=== PATIENT | male | born 1980 | race Caucasian/White ===

== ENCOUNTER 2017-05-16 22:40 | Emergency (ER) | payer OTHER ==
[2017-05-16 22:45] VITALS: BP 115/71
== END 2017-05-16 23:41 | disposition home or self-care (01) ==
LOC: ED 22:40
PROC: 3E023NZ Introduction of Analgesics, Hypnotics, Sedatives into Muscle, Percutaneous Approach (ICD-10-PCS; principal; 2017-05-16)
DX: R10.13 Epigastric pain (principal); R11.2 Nausea with vomiting, unspecified; R19.7 Diarrhea, unspecified
CPT/HCPCS: J1885; J7030; Q0162

== ENCOUNTER 2017-06-30 12:25 | Emergency (ER) | payer OTHER ==
[~2017-06-30] VITALS: Ht 175.3 cm; Wt 77.1 kg
[2017-06-30 16:15] LABS: BASOPHIL % 0.4 % (0-2)
[2017-06-30 16:20] LABS: CALCIUM 8.2 mg/dL (8.5-10.1); CARBON DIOXIDE 30.9 mmol/L (21-32); CHLORIDE SERUM 97 mmol/L (98-107); CREATININE SERUM 0.9 mg/dL (0.7-1.3); GFR1 > 60 mL/min; GLUCOSE SERUM 91 mg/dL (74-106); POTASSIUM SERUM 3.1 mmol/L (3.5-5.1); SODIUM SERUM 134 mmol/L (136-145)
[2017-06-30 16:24] LABS: ALBUMIN 2.6 g/dL (3.4-5.0); ALKALINE PHOSPHATASE 205 U/L (46-116); ALT/SGPT 48 U/L (16-63); AST/SGOT 172 U/L (15-37); BILIRUBIN TOTAL 2.8 mg/dL (0.20-1.00); LIPASE 116 IU/L (73-393); TOTAL PROTEIN, SERUM 8.5 g/dL (6.4-8.2)
[2017-06-30 16:41] LABS: UA SPECIFIC GRAVITY 1.015 (1.005-1.035); microscopic required? YES; urine erythrocyte NEGATIVE (NEGATIVE)
[2017-06-30 16:45] LABS: PLATELET COUNT 81 x10^3mcL (130-400)
[2017-06-30 18:30] VITALS: BP 117/78
== END 2017-06-30 18:30 | disposition home or self-care (01) ==
LOC: ED 12:25
PROVIDERS: Emergency Medicine
DX: S22.32XA Fracture of one rib, left side, initial encounter for closed fracture (principal); G89.29 Other chronic pain; E87.6 Hypokalemia; K76.9 Liver disease, unspecified; X58.XXXA Exposure to other specified factors, initial encounter; Y93.89 Activity, other specified; Y99.8 Other external cause status; Y92.89 Other specified places as the place of occurrence of the external cause
CPT/HCPCS: 83880; J2405; J7030

== ENCOUNTER 2018-02-12 22:24 | Inpatient (IN) | payer OTHER ==
[~2018-02-12] VITALS: Ht 175.3 cm; Wt 74.8 kg
[2018-02-12 22:37] VITALS: Ht 175.3 cm; Wt 74.8 kg
[2018-02-12 23:22] LABS: BASOPHIL % 0.3 % (0-2); PLATELET COUNT 256 x10^3mcL (130-400)
[2018-02-12 23:24] LABS: CALCIUM 8.5 mg/dL (8.5-10.1); CARBON DIOXIDE 26.9 mmol/L (21-32); CHLORIDE SERUM 99 mmol/L (98-107); CREATININE SERUM 0.9 mg/dL (0.7-1.3); GFR1 > 60 mL/min; GLUCOSE SERUM 130 mg/dL (74-106); POTASSIUM SERUM 3.4 mmol/L (3.5-5.1); RED CELL DISTRIBUTION WIDTH 14.7 % (11.5-14.5); SODIUM SERUM 135 mmol/L (136-145)
[2018-02-12 23:29] LABS: ALKALINE PHOSPHATASE 145 U/L (46-116); ALT/SGPT 34 U/L (16-63); AST/SGOT 28 U/L (15-37); BILIRUBIN TOTAL 0.9 mg/dL (0.20-1.00); TOTAL PROTEIN, SERUM 7.6 g/dL (6.4-8.2)
[2018-02-12 23:30] LABS: ALBUMIN 2.9 g/dL (3.4-5.0)
[2018-02-13] VITALS (7 sets, daily range): BP systolic 91–109; BP diastolic 48–66
[2018-02-13] MEDS ORDERED: PROVENTIL0.09 MG/A1 (00:54)
[2018-02-13 00:55] LABS: MAGNESIUM 1.7 mg/dL (1.8-2.4); PHOSPHOROUS 3.4 mg/dL (2.5-4.9)
[2018-02-13] MEDS ORDERED: CYMBALTA30 M1 PO (00:55)
[2018-02-13] MEDS ORDERED: NOR10T PO (00:55)
[2018-02-13 01:05] LABS: FREE THYROXINE INDEX 1.9 ug/dL (1.4-4.5); T4(THYROXINE) 5.2 ug/dL (4.7-13.3)
[2018-02-13 01:48] LABS: microscopic required? NO
[2018-02-13 01:57] LABS: UA SPECIFIC GRAVITY <=1.005 (1.005-1.035); urine erythrocyte NEGATIVE (NEGATIVE)
[2018-02-13 02:06] LABS: T3 TOTAL 0.91 ng/mL
[2018-02-13 02:17] LABS: AMPHETAMINE QUAL UR NONE DETECTED (See below)
[2018-02-13 06:30] LABS: BASOPHIL % 0.3 % (0-2); PLATELET COUNT 208 x10^3mcL (130-400)
[2018-02-13 06:41] LABS: RED CELL DISTRIBUTION WIDTH 14.6 % (11.5-14.5)
[2018-02-13 09:39] LABS: CALCIUM 7.5 mg/dL (8.5-10.1); CARBON DIOXIDE 26.7 mmol/L (21-32); CHLORIDE SERUM 105 mmol/L (98-107); CREATININE SERUM 0.8 mg/dL (0.7-1.3); GFR1 > 60 mL/min; GLUCOSE SERUM 87 mg/dL (74-106); MAGNESIUM 1.9 mg/dL (1.8-2.4); PHOSPHOROUS 4.3 mg/dL (2.5-4.9); POTASSIUM SERUM 3.5 mmol/L (3.5-5.1); SODIUM SERUM 140 mmol/L (136-145)
[2018-02-14] VITALS (7 sets, daily range): BP systolic 98–105; BP diastolic 51–61
[2018-02-14 06:15] LABS: BASOPHIL % 0.2 % (0-2); PLATELET COUNT 225 x10^3mcL (130-400); RED CELL DISTRIBUTION WIDTH 14.3 % (11.5-14.5)
[2018-02-14 06:22] LABS: CALCIUM 8.4 mg/dL (8.5-10.1); CARBON DIOXIDE 26.6 mmol/L (21-32); CHLORIDE SERUM 105 mmol/L (98-107); CREATININE SERUM 0.7 mg/dL (0.7-1.3); GFR1 > 60 mL/min; GLUCOSE SERUM 99 mg/dL (74-106); MAGNESIUM 1.9 mg/dL (1.8-2.4); PHOSPHOROUS 3.5 mg/dL (2.5-4.9); POTASSIUM SERUM 4.3 mmol/L (3.5-5.1); SODIUM SERUM 139 mmol/L (136-145)
[2018-02-15 06:26] VITALS: BP 118/73
[2018-02-15 07:04] LABS: PLATELET COUNT 255 x10^3mcL (130-400); RED CELL DISTRIBUTION WIDTH 14.2 % (11.5-14.5)
[2018-02-15 07:17] LABS: CALCIUM 8.5 mg/dL (8.5-10.1); CARBON DIOXIDE 26.7 mmol/L (21-32); CHLORIDE SERUM 102 mmol/L (98-107); CREATININE SERUM 0.6 mg/dL (0.7-1.3); GFR1 > 60 mL/min; GLUCOSE SERUM 89 mg/dL (74-106); MAGNESIUM 1.7 mg/dL (1.8-2.4); PHOSPHOROUS 3.6 mg/dL (2.5-4.9); POTASSIUM SERUM 3.5 mmol/L (3.5-5.1); SODIUM SERUM 137 mmol/L (136-145)
[2018-02-15 07:41] LABS: BASOPHIL % 0 % (0-2)
[2018-02-15 08:44] VITALS: BP 103/60
[2018-02-15 13:57] VITALS: BP 109/60
[2018-02-15 17:08] VITALS: BP 126/78
[2018-02-15 22:08] VITALS: BP 95/50
[2018-02-16 00:03] VITALS: BP 114/70
[2018-02-16 05:57] VITALS: BP 114/66
[2018-02-16 06:12] LABS: BASOPHIL % 0.1 % (0-2); PLATELET COUNT 285 x10^3mcL (130-400)
[2018-02-16 06:29] LABS: CALCIUM 8.9 mg/dL (8.5-10.1); CHLORIDE SERUM 104 mmol/L (98-107); CREATININE SERUM 0.7 mg/dL (0.7-1.3); GFR1 > 60 mL/min; GLUCOSE SERUM 81 mg/dL (74-106); MAGNESIUM 2.1 mg/dL (1.8-2.4); PHOSPHOROUS 4.1 mg/dL (2.5-4.9); POTASSIUM SERUM 4.1 mmol/L (3.5-5.1); SODIUM SERUM 139 mmol/L (136-145)
[2018-02-16 06:37] LABS: RED CELL DISTRIBUTION WIDTH 14.8 % (11.5-14.5)
[2018-02-16 11:08] VITALS: BP 123/79
[2018-02-16 16:21] VITALS: BP 111/63
[2018-02-16 20:57] VITALS: BP 115/75
[2018-02-17 05:31] VITALS: BP 107/60
[2018-02-17 06:45] LABS: CALCIUM 9.1 mg/dL (8.5-10.1); CARBON DIOXIDE 27.7 mmol/L (21-32); CHLORIDE SERUM 105 mmol/L (98-107); CREATININE SERUM 0.7 mg/dL (0.7-1.3); GFR1 > 60 mL/min; GLUCOSE SERUM 81 mg/dL (74-106); MAGNESIUM 2.1 mg/dL (1.8-2.4); PHOSPHOROUS 4.2 mg/dL (2.5-4.9); POTASSIUM SERUM 4.3 mmol/L (3.5-5.1); SODIUM SERUM 140 mmol/L (136-145)
[2018-02-17 07:04] LABS: BASOPHIL % 0.5 % (0-2); PLATELET COUNT 318 x10^3mcL (130-400); RED CELL DISTRIBUTION WIDTH 14.4 % (11.5-14.5)
[2018-02-17 08:43] VITALS: BP 117/81
[2018-02-17 17:11] VITALS: BP 106/70
[2018-02-17 21:04] VITALS: BP 104/61
[2018-02-18 05:22] VITALS: BP 109/64
[2018-02-18 06:10] LABS: BASOPHIL % 0.4 % (0-2); PLATELET COUNT 338 x10^3mcL (130-400); RED CELL DISTRIBUTION WIDTH 14.2 % (11.5-14.5)
[2018-02-18 06:22] LABS: CALCIUM 9.5 mg/dL (8.5-10.1); CARBON DIOXIDE 28.3 mmol/L (21-32); CHLORIDE SERUM 105 mmol/L (98-107); CREATININE SERUM 0.6 mg/dL (0.7-1.3); GFR1 > 60 mL/min; GLUCOSE SERUM 86 mg/dL (74-106); PHOSPHOROUS 4.1 mg/dL (2.5-4.9); POTASSIUM SERUM 4.4 mmol/L (3.5-5.1); SODIUM SERUM 139 mmol/L (136-145)
[2018-02-18] MEDS ORDERED: AUG500 PO ×2 (06:26→09:07)
[2018-02-18] MEDS ORDERED: LAC PO ×2 (06:27→09:07)
[2018-02-18 08:55] VITALS: BP 124/82
[2018-02-18] MEDS ORDERED: IPRATROPIUM BROM3 M2 HHN (08:57)
[2018-02-18 09:50] VITALS: BP 124/82
== END 2018-02-18 10:28 | disposition home or self-care (01) | DRG 720 ==
LOC: ED 22:24 → MU 02-13 00:28 → DU 02-13 00:28 → MU 02-15 07:40
PROVIDERS: Emergency Medicine; Family Medicine
DX: A41.9 Sepsis, unspecified organism (principal); J69.0 Pneumonitis due to inhalation of food and vomit; J85.0 Gangrene and necrosis of lung; K74.60 Unspecified cirrhosis of liver; E44.0 Moderate protein-calorie malnutrition; K80.20 Calculus of gallbladder without cholecystitis without obstruction; J45.909 Unspecified asthma, uncomplicated; F12.90 Cannabis use, unspecified, uncomplicated; G89.29 Other chronic pain; M54.9 Dorsalgia, unspecified; F32.9 Major depressive disorder, single episode, unspecified; D64.9 Anemia, unspecified; E87.6 Hypokalemia; E83.42 Hypomagnesemia; Z68.24 Body mass index [BMI] 24.0-24.9, adult
CPT/HCPCS: 32405; 82785; 83880; 84439; 86580; 87116; 87206; 94150; C1894; J0295; J0456; J0696; J1885; J2001; J2270; J2405; J2543; J2800; J3475; J3490; J7030; J7040; J7050; J7620; Q0092; Q9967

== ENCOUNTER 2020-03-29 13:44 | Emergency (ER) | payer BC, OTHER ==
[~2020-03-29] VITALS: Ht 175.3 cm; Wt 81.6 kg
[~2020-03-29 13:44] MED LIST: AUG500 PO; CYMBALTA30 M1 PO; IPRATROPIUM BROM3 M2 HHN; LAC PO; NOR10T PO; PROVENTIL0.09 MG/A1
[2020-03-29 16:22] LABS: PLATELET COUNT 277 x10^3mcL (130-400)
[2020-03-29 16:27] LABS: CALCIUM 7.6 mg/dL (8.5-10.1); CARBON DIOXIDE 24.5 mmol/L (21-32); CHLORIDE SERUM 101 mmol/L (98-107); GFR1 > 60 mL/min; GLUCOSE SERUM 104 mg/dL (74-106); POTASSIUM SERUM 3.2 mmol/L (3.5-5.1); SODIUM SERUM 136 mmol/L (136-145)
[2020-03-29 16:29] LABS: ALBUMIN 3.1 g/dL (3.4-5.0); ALKALINE PHOSPHATASE 102 U/L (46-116); ALT/SGPT 30 U/L (16-63); AST/SGOT 38 U/L (15-37); BILIRUBIN TOTAL 0.5 mg/dL (0.20-1.00); TOTAL PROTEIN, SERUM 7.2 g/dL (6.4-8.2)
[2020-03-29 16:44] LABS: RED CELL DISTRIBUTION WIDTH 21.6 % (11.5-14.5)
[2020-03-29 17:25] VITALS: BP 124/74
[2020-03-29 17:53] LABS: BAND NEUTROPHIL 0 % (0-10); BASOPHIL 0 % (0-2); SEGMENTED NEUTROPHILS 76 % (37-75); rbc morphology (normal/abnorm) ABNORMAL (NORMAL)
== END 2020-03-29 17:25 | disposition home or self-care (01) ==
LOC: ED 13:44
PROVIDERS: Emergency Medicine
DX: R06.02 Shortness of breath (principal); D64.9 Anemia, unspecified; E87.6 Hypokalemia; J45.909 Unspecified asthma, uncomplicated; G89.29 Other chronic pain; M54.9 Dorsalgia, unspecified
CPT/HCPCS: 83880; Q0092

== ENCOUNTER 2020-04-12 17:57 | Inpatient (IN) | payer BC, OTHER ==
[~2020-04-12] VITALS: Ht 175.3 cm; Wt 80.3 kg
[2020-04-12 18:13] VITALS: Ht 175.3 cm; Wt 80.3 kg
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
[2020-04-12 18:44] LABS: PLATELET COUNT 190 x10^3mcL (130-400)
[2020-04-12 18:50] LABS: RED CELL DISTRIBUTION WIDTH 28.2 % (11.5-14.5)
[2020-04-12 19:08] LABS: BAND NEUTROPHIL 1 % (0-10); BASOPHIL 0 % (0-2); MONOCYTE 6 % (0-7); SEGMENTED NEUTROPHILS 74 % (37-75)
--- NOTE | 2020-04-12 19:09 | NUR ---
RECEIVED REPORT FROM RE BHATT TO ASSUME PT CARE.
--- NOTE | 2020-04-12 19:10 | NUR ---
GAVE REPORT TO MAJO GRIMALDO WHO WILL ASSUME FURTHER CARE OF THIS PT.
[2020-04-12 19:12] LABS: PLATELET MORPHOLOGY PLATELETS NORMAL; rbc morphology (normal/abnorm) ABNORMAL (NORMAL); target cell (codocyte) 1+
[2020-04-12 19:17] LABS: ALKALINE PHOSPHATASE 138 U/L (46-116); ALT/SGPT 48 U/L (16-63); AST/SGOT 59 U/L (15-37); BILIRUBIN TOTAL 0.7 mg/dL (0.20-1.00); CALCIUM 8.3 mg/dL (8.5-10.1); CARBON DIOXIDE 26.8 mmol/L (21-32); CHOLESTEROL 173 mg/dL (<200); CREATININE SERUM 1.1 mg/dL (0.7-1.3); GFR1 > 60 mL/min; GLUCOSE SERUM 104 mg/dL (74-106); LIPASE 186 IU/L (73-393); MAGNESIUM 1.5 mg/dL (1.8-2.4); TOTAL PROTEIN, SERUM 7.5 g/dL (6.4-8.2)
[2020-04-12 19:19] LABS: ALBUMIN 3.3 g/dL (3.4-5.0); HDL CHOLESTEROL 69 mg/dL (40-60); T4(THYROXINE) 3.6 ug/dL (4.7-13.3)
[2020-04-12 19:32] LABS: SODIUM SERUM 136 mmol/L (136-145)
[2020-04-12 19:33] LABS: CHLORIDE SERUM 96 mmol/L (98-107)
[2020-04-12 19:36] LABS: UA SPECIFIC GRAVITY 1.025 (1.005-1.035); microscopic required? YES; urine erythrocyte NEGATIVE (NEGATIVE)
[2020-04-12 20:01] LABS: AMPHETAMINE QUAL UR NONE DETECTED (See below)
--- NOTE | 2020-04-12 20:11 | NUR ---
PT SITTING UP IN BED IN A POSITION OF COMFORT. PT BREATHING E/U, NO S/S OF DISTRESS NOTED.
[2020-04-12 20:15] LABS: POTASSIUM SERUM 2.4 mmol/L (3.5-5.1)
--- NOTE | 2020-04-12 20:47 | NUR ---
PT REPORTING [place] PAIN AT THIS TIME RATED AT 5/10. WILL MEDICATE PER PRN EMAR ORDER.
[2020-04-12 20:56] LABS: PHOSPHOROUS 1.9 mg/dL (2.5-4.9)
[2020-04-12 20:57] LABS: CHOLESTEROL/HDL RATIO 2.5
--- NOTE | 2020-04-12 21:18 | NUR ---
PT REPORTS HEADACHE PAIN "IS BETTER NOW". PT NOTED RESTING IN BED IN A POSITION OF COMFORT. DIMMED LIGHTS IN ROOM AT THIS TIME FOR COMFORT.
--- NOTE | 2020-04-12 22:35 | NUR ---
PT DENIES PAIN AND N/V AT THIS TIME. PT NOTED RESTING IN BED IN A POSITION OF COMFORT. NO S/S OF ACUTE DISTRESS NOTED
--- NOTE | 2020-04-12 22:45 | NUR ---
REPORT GIVEN TO RE PORTILLO TO ASSUME PT CARE. PT TO BE TRANSFERED TO 735B
--- NOTE | 2020-04-12 23:03 | NUR ---
PT TRANSFERED TO 232B VIA [facility]NEY BY PEPPER KELLER AND REYNALDO RN. PT PLACED ON FULL TRAVEL REGISTERED NURSE ONCOLOGY DURING TRANSPORT. PT BREATHING E/U, NO S/S OF ACUTE DISTRTESS NOTED. PT A&OX4. PT TRANSFERED TO BED 232B WITHOUT INJURY. RN AT BEDSIDE TO ASSUME PT CARE.
[2020-04-12 23:19] VITALS: BP 148/80
--- NOTE | 2020-04-12 23:31 | NUR ---
RECEIVED PT FROM ER, PT ADMIT FOR HYPOKALEMIA, MORBID ANEMIA. PT IS A/O X4, C/O HEADACHE, LUNG SOUND CLEAR BILATERAL, NO COUGH, NO SOB. PT IS ON TELE 34, NSR, DENY ANY CHEST PAIN OR DISCOMFORT, BOWEL SOUND PRESENT ALL 4 QUADRANTS, NO DISTENTION, NO TENDER, PEDAL PULSE PRESENT BOTH FEET, NO EDEMA, IV AT LEFT AC, NO LEAKING, NO INFILTRAITON. ALL ADLS ASSIST, ALL NEED MET, CALL LIGHT IN REACH, WILL CONTINUE TO MONTIOR.
--- NOTE | 2020-04-13 | NUR ---
RECEIVED PT FROM RESOURCE NURSE, PT AWAKE AND SITTING IN BED. AA/O X 4, CLEAR SPEECH, HEADACHE PRESENT. PT DENIES DIZZINESS. ABLE TO MAKE NEEDS KNOWN, NO FACIAL DROP. TELE MONITOR #34, NSR, DENIES CHEST PAIN/ CHEST PRESSURE. PULSES PALPABLE, NO EDEMA. CLEAR LUNG SOUNDS FANY. SPO2 98% ON ROOM AIR. ACTIVE BS X 4 QUADS, DENIES N/V/D. ABD SOFT AND NON DISTENDED, NON TENDER. VOIDS USING URINAL. SKIN INTACT, DENIES PAIN. IV TO LAC INTACT, NO ERYTHEMA/ NO INFILTRATION. IV FLUID INFUSING WELL. PT IS CALM AND COMPLIANT. ALL CONCERNS ADDRESSED. CALL BUTTON WITHIN REACH, WILL CONTINUE TO MONITOR.
--- NOTE | 2020-04-13 01:32 | NUR ---
PT COMPLAINED OF INSOMNIA. PT REPORTS REGULARLY TAKING TRAZODONE 50 MG TO HELP HIM SLEEP. PT REQUESTING SLEEPING AID. PT ALSO REPORTS TAKING XANAX 0.5 MG PRN FOR ANXIETY. DR. REMY MADE AWARE. NEW ORDER FOR ATIVAN 1 MG ONE TIME RCEIVED FOR SLEEP. PRN ATIVAN MEDICATION GIVEN TO PATIENT ORDERED. WILL CONTINUE TO MONITOR.
--- NOTE | 2020-04-13 03:00 | NUR ---
PT COMPLAINED OF BEING "HOT". NO TEMPERATURE. AIR CONDITIONER ON AND ALREADY AT LOWEST SETTING, 60 DEGREES. ICE PACKS PROVIDED. PT CONTENT. WILL CONTINUE TO MONITOR.
[2020-04-13 06:25] VITALS: BP 124/77
--- NOTE | 2020-04-13 06:50 | NUR ---
PT SLEPT IN INTERVALS THROUGHOUT THE NIGHT, BUT EASILY AROUSABLE. PT STATED HE DID NOT GET "GOOD SLEEP". PT WANTS TO CONTINUE RESTING. RESPIRATIONS E/U ON ROOM AIR, DENIES SOB, NO RESPIRATORY DISTRESS. PT DENIES PAIN. IV FLUIDS INFUSING WELL TO IV SITE, NO ERYTHEMA/ NO INFILTRATION. NO ACUTE CHANGES OVERNIGHT. CALL BUTTON WITHIN REACH, CARE ENDORSED TO AM NURSE.
--- NOTE | 2020-04-13 07:56 | NUR ---
RECEIVED PT FROM NIGHT NURSE. HE APPEARED TO HAVE A MILD TREMOR IN THE HANDS AND REPORTED FEELING ANXIOUS AND "SHAKY." HE WAS GIVEN ATIVAN 1 MG ORDERED PRN. ALL OTHER NEEDS MET. NO ACUTE DISTRESS OR SOB. SAFETY PRECAUTIONS IN PLACE. WILL CONTINUE TO MONITOR.
[2020-04-13 08:19] VITALS: BP 138/90
[2020-04-13 10:23] LABS: BASOPHIL % 1.2 % (0-2); PLATELET COUNT 165 x10^3mcL (130-400)
[2020-04-13 10:44] LABS: CALCIUM 8.4 mg/dL (8.5-10.1); CARBON DIOXIDE 29.2 mmol/L (21-32); CHLORIDE SERUM 101 mmol/L (98-107); CREATININE SERUM 0.9 mg/dL (0.7-1.3); GFR1 > 60 mL/min; GLUCOSE SERUM 105 mg/dL (74-106); MAGNESIUM 1.9 mg/dL (1.8-2.4); PHOSPHOROUS 3.5 mg/dL (2.5-4.9); POTASSIUM SERUM 3.4 mmol/L (3.5-5.1); SODIUM SERUM 138 mmol/L (136-145)
[2020-04-13 10:47] LABS: RED CELL DISTRIBUTION WIDTH 29.4 % (11.5-14.5)
--- NOTE | 2020-04-13 10:48 | NUR ---
TUG CAPTAIN REPORTED HR IN 140S. FURTHER ASSESSMENT SHOWED HR 95 BPM. NO SIGNS OF ELEVATED ANXIETY. PT CONFIRMS NOT FEELING ANXIOUS. WILL CONTINUE TO MONITOR.
[2020-04-13] MEDS ORDERED: ZOF4 PO (12:59)
[2020-04-13 13:17] LABS: IRON 31 ug/dL (65-170); TOTAL IRON BINDING CAPACITY 452 ug/dL (250-450)
[2020-04-13 13:54] VITALS: BP 136/93
--- NOTE | 2020-04-13 20:42 | NUR ---
IV DC WITH CATHETER INTACT. GIVEN EDUCATION ABOUT ALCOHOL WITHDRAWAL, FOLLOW UP, AND MEDICATION RECONCILIATION. VERBALIZED UNDERSTANDING. ESCORTED TO ENTRANCE FOR SPORTS MEDICINE COORDINATOR. AAOX4, MEDICATED WITH NORCO BEFORE DC. NO ACUTE DISTRESS NOTED
== END 2020-04-13 14:22 | disposition home or self-care (01) | DRG 313 ==
LOC: ED 17:57 → DU 20:18
PROVIDERS: Emergency Medicine; Family Medicine; ADMIT Internal Medicine; ATTEND Internal Medicine
DX: R07.89 Other chest pain (principal); M54.9 Dorsalgia, unspecified; J45.909 Unspecified asthma, uncomplicated; G89.29 Other chronic pain; F41.9 Anxiety disorder, unspecified; F32.9 Major depressive disorder, single episode, unspecified; E87.6 Hypokalemia; D64.9 Anemia, unspecified; F10.20 Alcohol dependence, uncomplicated; Y90.9 Presence of alcohol in blood, level not specified; E83.42 Hypomagnesemia; E83.51 Hypocalcemia; E83.39 Other disorders of phosphorus metabolism
CPT/HCPCS: 82962; 83880; G0378; G0480; J2405; J3480; J3490; J7030; Q0092

== ENCOUNTER 2020-05-13 21:11 | Inpatient (IN) | payer BC, OTHER ==
[~2020-05-13] VITALS: Ht 175.3 cm; Wt 83.6 kg
[~2020-05-13 21:11] MED LIST changes: +ZOF4 PO
[2020-05-13 21:23] VITALS: Ht 175.3 cm; Wt 83.6 kg
[2020-05-13 23:53] LABS: PLATELET COUNT 143 x10^3mcL (130-400)
[2020-05-14] LABS: BASOPHIL % 0 % (0-2); RED CELL DISTRIBUTION WIDTH 25.5 % (11.5-14.5)
[2020-05-14 00:05] LABS: ALKALINE PHOSPHATASE 135 U/L (46-116); ALT/SGPT 34 U/L (16-63); AST/SGOT 60 U/L (15-37); BILIRUBIN TOTAL 0.7 mg/dL (0.20-1.00); CALCIUM 7.8 mg/dL (8.5-10.1); CARBON DIOXIDE 25.4 mmol/L (21-32); CHLORIDE SERUM 101 mmol/L (98-107); GFR1 > 60 mL/min; GLUCOSE SERUM 91 mg/dL (74-106); MAGNESIUM 1.4 mg/dL (1.8-2.4); SODIUM SERUM 136 mmol/L (136-145); TOTAL PROTEIN, SERUM 6.8 g/dL (6.4-8.2); rbc morphology (normal/abnorm) ABNORMAL (NORMAL)
[2020-05-14 00:06] LABS: ALBUMIN 2.9 g/dL (3.4-5.0)
[2020-05-14 00:08] LABS: POTASSIUM SERUM 2.9 mmol/L (3.5-5.1)
[2020-05-14 01:26] LABS: UA SPECIFIC GRAVITY 1.015 (1.005-1.035); microscopic required? YES; urine erythrocyte NEGATIVE (NEGATIVE)
[2020-05-14 01:44] LABS: AMYLASE 36 U/L (25-115); FREE T4 0.77 ng/dL (0.76-1.46); LIPASE 147 IU/L (73-393)
[2020-05-14 01:45] LABS: FREE THYROXINE INDEX 1.5 ug/dL (1.4-4.5); T4(THYROXINE) 3.9 ug/dL (4.7-13.3)
[2020-05-14] MEDS ORDERED: XANAX0.25 MG PO (01:55)
[2020-05-14] MEDS ORDERED: CELEXA10 MG PO (01:56)
[2020-05-14] MEDS ORDERED: ULTRAM50 MG PO (01:56)
[2020-05-14 03:05] LABS: AMPHETAMINE QUAL UR NONE DETECTED (See below)
[2020-05-14 03:29] VITALS: BP 125/79
[2020-05-14 04:16] LABS: T3 TOTAL 1.13 ng/mL
[2020-05-14 06:16] VITALS: BP 111/64
[2020-05-14 08:13] VITALS: BP 123/73
[2020-05-14 11:57] VITALS: BP 125/72
[2020-05-14 12:26] LABS: BASOPHIL % 0.9 % (0-2); PLATELET COUNT 147 x10^3mcL (130-400)
[2020-05-14 12:34] LABS: CALCIUM 7.6 mg/dL (8.5-10.1); CARBON DIOXIDE 27.6 mmol/L (21-32); CHLORIDE SERUM 105 mmol/L (98-107); GFR1 > 60 mL/min; GLUCOSE SERUM 92 mg/dL (74-106); POTASSIUM SERUM 3.5 mmol/L (3.5-5.1); SODIUM SERUM 138 mmol/L (136-145)
[2020-05-14 12:35] LABS: RED CELL DISTRIBUTION WIDTH 25.4 % (11.5-14.5)
[2020-05-14] MEDS ORDERED: LIB25 PO ×2 (13:11→15:06)
[2020-05-14] MEDS ORDERED: PROTONIX20 MG PO ×2 (13:15→15:06)
[2020-05-14 13:26] LABS: rbc morphology (normal/abnorm) ABNORMAL (NORMAL)
[2020-05-14 13:27] LABS: ovalocyte/elliptocyte 1+
[2020-05-14 13:56] VITALS: BP 125/72
== END 2020-05-14 15:36 | disposition home or self-care (01) | DRG 641 ==
LOC: ED 21:11 → DU 05-14 00:23
PROVIDERS: Emergency Medicine; Family Medicine; ADMIT Internal Medicine; ATTEND Internal Medicine
PROC: 30233N1 Transfusion of Nonautologous Red Blood Cells into Peripheral Vein, Percutaneous Approach (ICD-10-PCS; principal; 2020-05-14)
DX: E87.6 Hypokalemia (principal); F10.239 Alcohol dependence with withdrawal, unspecified; Z20.828 Contact with and (suspected) exposure to other viral communicable diseases; J45.909 Unspecified asthma, uncomplicated; F41.9 Anxiety disorder, unspecified; F32.9 Major depressive disorder, single episode, unspecified; D64.9 Anemia, unspecified; Y90.9 Presence of alcohol in blood, level not specified
CPT/HCPCS: 84439; C9113; G0378; G0480; J2060; J2405; J2916; J3411; J3480; J3490; J7030; J7050; P9016; Q0092; U0003-CS

== ENCOUNTER 2020-06-11 01:52 | Emergency (ER) | payer BC, OTHER ==
[~2020-06-11] VITALS: Ht 172.7 cm; Wt 74.8 kg
[~2020-06-11 01:52] MED LIST changes: +CELEXA10 MG PO; +LIB25 PO; +PROTONIX20 MG PO; +ULTRAM50 MG PO; +XANAX0.25 MG PO
[2020-06-11 02:02] VITALS: Ht 172.7 cm; Wt 74.8 kg
[2020-06-11 02:41] LABS: CALCIUM 7.7 mg/dL (8.5-10.1); CARBON DIOXIDE 28.8 mmol/L (21-32); CHLORIDE SERUM 104 mmol/L (98-107); CREATININE SERUM 1.1 mg/dL (0.7-1.3); GFR1 > 60 mL/min; GLUCOSE SERUM 122 mg/dL (74-106); POTASSIUM SERUM 3.2 mmol/L (3.5-5.1); SODIUM SERUM 141 mmol/L (136-145)
[2020-06-11 02:55] LABS: ALKALINE PHOSPHATASE 133 U/L (46-116); ALT/SGPT 24 U/L (16-63); AST/SGOT 50 U/L (15-37); BILIRUBIN TOTAL 0.37 mg/dL (0.20-1.00); TOTAL PROTEIN, SERUM 7.1 g/dL (6.4-8.2)
[2020-06-11 03:11] LABS: PLATELET COUNT 251 x10^3mcL (130-400)
[2020-06-11 03:12] LABS: BASOPHIL % 0 % (0-2)
[2020-06-11 06:14] LABS: microscopic required? NO
[2020-06-11 06:28] LABS: urine erythrocyte NEGATIVE (NEGATIVE)
[2020-06-11 06:52] LABS: AMPHETAMINE QUAL UR NONE DETECTED (See below)
[2020-06-11 15:05] VITALS: BP 141/96
== END 2020-06-11 15:05 | disposition home or self-care (01) ==
LOC: ED 01:52
PROVIDERS: Emergency Medicine
DX: F10.129 Alcohol abuse with intoxication, unspecified (principal); J45.909 Unspecified asthma, uncomplicated; G89.29 Other chronic pain; M54.9 Dorsalgia, unspecified
CPT/HCPCS: G0480; J2405; U0003-CS